=== PATIENT | female | born 1945 | race Caucasian/White ===

== ENCOUNTER 2020-06-08 09:26 | Outpatient (REF) | payer MEDICARE, SELFPAY ==
[2020-06-08 10:16] LABS: MANUAL DIFF FLAG NO
[2020-06-08 10:47] LABS: Basophils Absolute Auto 0.1 X10*3/uL (0.0-0.2); Basophils Percent Auto 0.7 % (0-2); Eosinophils Absolute Auto 0.4 X10*3/uL (0.0-0.4); Eosinophils Percent Auto 4.4 % (0-4); Hematocrit 41.8 % (37-47); Hemoglobin 13.9 g/dl (12.0-16.0); Imm Gran Abs Auto 0.04 X10*3/uL (0.00-0.03); Imm Gran Pct Auto 0.5 % (0.0-0.4); Lymphocytes Absolute Auto 1.8 X10*3/uL (1.2-4.9); Lymphocytes Percent Auto 22.4 % (20-40); Mean Corpuscular HGB Conc 33.3 g/dl (31.0-35.0); Mean Corpuscular Volume 90.3 fL (80-98); Monocytes Absolute Auto 0.5 X10*3/uL (0.1-1.2); Monocytes Percent Auto 6.4 % (2-11); Neutrophils Absolute Auto 5.3 X10*3/uL (2.0-8.3); Neutrophils Percent Auto 65.6 % (45-73); Platelet Count 226 X10*3/uL (160-400); Red Blood Count 4.63 X10*6/uL (4.20-5.50); Red Cell Distribution Width 12.6 % (11.0-16.0)
[2020-06-08 11:06] LABS: Alanine Aminotransferase 24 U/L (0-31); Albumin Level 4.4 g/dL (3.5-5.0); Alkaline Phosphatase 56 U/L (39-117); Anion Gap 12 (12-20); Aspartate Amino Transferase 20 U/L (5-31); Bilirubin Total 0.4 mg/dL (0.0-1.0); Blood Urea Nitrogen 17 mg/dL (9-16); Calcium 9.4 mg/dL (8.4-10.2); Carbon Dioxide 27 mmol/L (22-29); Chloride 107 mmol/L (96-108); Cholesterol 177 mg/dL; Estimated Glomerular Filt Rate > 60; Glucose Random 137 mg/dL (60-115); HDL Cholesterol 41 mg/dL; LDL Cholesterol Calculated 103 mg/dl; Potassium 4.2 mmol/L (3.3-5.1); Sodium 142 mmol/L (135-145); Total Protein 7.2 g/dL (6.5-8.0); Triglycerides 167 mg/dL
[2020-06-08 11:43] LABS: Estimated Average Glucose 137 mg/dL; Hemoglobin A1c % 6.4 %
[2020-06-08 12:35] LABS: Creatinine Urine 115.35 mg/dL
== END 2020-06-08 09:27 | disposition home or self-care (01) ==
LOC: HO.LAB 09:26
PROVIDERS: PCP Internal Medicine; Visit Provider Internal Medicine
DX: Z00.01 Encounter for general adult medical examination with abnormal findings (principal); E11.9 Type 2 diabetes mellitus without complications; E78.00 Pure hypercholesterolemia, unspecified; I10 Essential (primary) hypertension
CPT/HCPCS: 36415; 80053; 80061; 82043; 83036; 85025

== ENCOUNTER 2020-09-01 07:33 | Outpatient (REF) | payer MEDICARE, SELFPAY ==
--- NOTE | ~2020-09-01 | XR_ITS ---
EXAMINATION: AP BILATERAL STANDING KNEES AND 2 VIEWS OF THE LEFT KNEE CLINICAL INFORMATION: Bilateral knee pain COMPARISON: None TECHNIQUE: AP standing view of the knees as well as lateral and sunrise views of the left knee FINDINGS: AP view of both knees do not demonstrate any significant joint space narrowing of the right knee. There is moderate narrowing of the medial joint space compartment of the left knee. No acute fracture or dislocation is evident. There is noted to be spurring undersurface of the patella at the patellofemoral joint. There is some degenerative spurring about the medial facet. There is a large left knee effusion. 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
--- NOTE | ~2020-09-01 | XR_ITS ---
EXAMINATION: AP BILATERAL STANDING KNEES AND 2 VIEWS OF THE LEFT KNEE CLINICAL INFORMATION: Bilateral knee pain COMPARISON: None TECHNIQUE: AP standing view of the knees as well as lateral and sunrise views of the left knee FINDINGS: AP view of both knees do not demonstrate any significant joint space narrowing of the right knee. There is moderate narrowing of the medial joint space compartment of the left knee. No acute fracture or dislocation is evident. There is noted to be spurring undersurface of the patella at the patellofemoral joint. There is some degenerative spurring about the medial facet. There is a large left knee effusion. 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
== END 2020-09-01 07:34 | disposition home or self-care (01) ==
LOC: HO.HOSX 07:33
PROVIDERS: Visit Provider Orthopaedic Surgery
DX: M17.12 Unilateral primary osteoarthritis, left knee (principal)
CPT/HCPCS: 20610; 73560; 73565; 99202; J1040

== ENCOUNTER 2021-02-22 14:25 | Outpatient (REF) | payer MEDICARE, SELFPAY ==
[2021-02-22 15:16] LABS: Estimated Average Glucose 134 mg/dL; Hemoglobin A1c % 6.3 %
[2021-02-22 15:31] LABS: Alanine Aminotransferase 26 U/L (0-31); Albumin Level 4.6 g/dL (3.5-5.0); Alkaline Phosphatase 58 U/L (39-117); Anion Gap 15 (12-20); Aspartate Amino Transferase 26 U/L (5-31); Bilirubin Total 0.5 mg/dL (0.0-1.0); Blood Urea Nitrogen 22 mg/dL (9-16); Calcium 10.3 mg/dL (8.4-10.2); Carbon Dioxide 25 mmol/L (22-29); Chloride 103 mmol/L (96-108); Cholesterol 206 mg/dL; Estimated Glomerular Filt Rate 60; Glucose Random 99 mg/dL (60-115); HDL Cholesterol 40 mg/dL; LDL Cholesterol Calculated 112 mg/dl; Potassium 4.4 mmol/L (3.3-5.1); Sodium 139 mmol/L (135-145); Total Protein 7.9 g/dL (6.5-8.0); Triglycerides 272 mg/dL
[2021-02-22 17:45] LABS: Creatinine Urine 204.32 mg/dL; Microalbum/Creatinine Ratio Ur 57.7 ug/mg cr
== END 2021-02-22 14:26 | disposition home or self-care (01) ==
LOC: HO.LAB 14:25
PROVIDERS: PCP Internal Medicine; Visit Provider Internal Medicine
DX: E11.9 Type 2 diabetes mellitus without complications (principal); E78.00 Pure hypercholesterolemia, unspecified; F41.1 Generalized anxiety disorder; I10 Essential (primary) hypertension
CPT/HCPCS: 36415; 80053; 80061; 82043; 83036